=== PATIENT | female | born 1960 | race Caucasian/White ===

== ENCOUNTER 2016-06-16 22:30 | Inpatient (IN) | payer MEDICARE, MEDICAID ==
[~2016-06-16] VITALS: Ht 163.8 cm; Wt 86.6 kg
[2016-06-16] MEDS ORDERED: ASPIRIN 81MG TABLET PO ONE (23:30)
[2016-06-16 23:44] LABS: BASOPHILS % 0.5 % (0.0-2.0); HEMATOCRIT. 35.2 % (36.0-48.0); HEMOGLOBIN. 11.9 g/dL (12.0-16.0); LYMPHOCYTES % 11.9 % (20.0-50.0); MEAN CORPUSCULAR VOLUME 94.1 fL (81.0-99.0); MEAN PLATELET VOLUME 7.8 fl (7.4-10.4); MONOCYTES % 6.4 % (2.0-8.0); NEUTROPHILS % 74.2 % (40.0-76.0); PLATELET 184 x1000/uL (130-400); RED BLOOD CELL COUNT 3.73 mill/uL (4.2-5.4); RED CELL DISTRIBUTION WIDTH 15.1 % (11.6-14.6); WHITE BLOOD COUNT 7.1 x1000/uL (4.5-11.0)
[2016-06-16 23:49] LABS: PROTHROMBIN TIME 10.9 sec
[2016-06-16 23:57] LABS: ALANINE AMINOTRANSFERASE 25 IU/L (13-61); ALBUMIN 3.4 g/dL (3.4-5.0); ANION GAP 18; CALCIUM 9.9 mg/dL (8.5-10.1); CARBON DIOXIDE 31 mEq/L (21-32); CHLORIDE 91 mEq/L (98-107); INDEX HEMOLYSI 1 (1-3); INDEX ICTERIC 1 (1-4); INDEX LIPEMIC 1 (1-3); NT PRO B-TYPE NATRIURETIC PEP 15171 pg/mL (5-125); TROPONIN I 0.15 ng/mL (0.00-0.04); UREA NITROGEN BLOOD 44 mg/dL (7-21); eGFR 5 mL/min (>60)
[2016-06-17] MEDS: NITROGLYCERIN 0.4MG TABLET SL SL PRN ×3 (00:24→02:16)
[2016-06-17] MEDS ORDERED: ACETAMINOPHEN WITH CODEINE 300/30MG TABLET PO ONE (04:15)
[2016-06-17 09:48] VITALS: BP 122/60
[2016-06-17] MEDS ORDERED: CINA30 PO (10:48)
[2016-06-17] MEDS ORDERED: AMLO10TA4 PO (10:48)
[2016-06-17] MEDS ORDERED: ONDA4TAB5 PO (10:48)
[2016-06-17] MEDS ORDERED: TRAZ-129 PO (10:48)
[2016-06-17] MEDS ORDERED: ATOR20TA65 PO (10:48)
[2016-06-17] MEDS ORDERED: OXYC15TA82 PO (10:48)
[2016-06-17] MEDS ORDERED: PHOSLO PO (10:48)
[2016-06-17] MEDS ORDERED: LEVEMIR SUBCUT (10:48)
[2016-06-17] MEDS ORDERED: ASPI81TA2 PO (10:48)
[2016-06-17] MEDS ORDERED: OXYCODONE HCL 5MG TABLET PO PRN (11:45)
[2016-06-17] MEDS ORDERED: NITROGLYCERIN 0.4MG TABLET SL SL PRN (11:45)
[2016-06-17] MEDS ORDERED: FOLIC ACID/VITAMIN B COMP W-C TABLET PO SCH (11:45)
[2016-06-17 12:00] VITALS: BP 127/62
[2016-06-17] MEDS ORDERED: DEXTROSE 50% WATER 50ML SYRINGE IV PRN (12:00)
[2016-06-17] MEDS: FOLIC ACID/VITAMIN B COMP W-C TABLET PO SCH (12:34)
[2016-06-17] MEDS: ASPIRIN 81MG TABLET PO SCH (12:34)
[2016-06-17] MEDS: HYDROMORPHONE HCL/PF 2MG/ML CPJ IV PRN ×2 (12:34→18:36)
[2016-06-17] MEDS: BLOOD SUGAR DIAGNOSTIC STRIP TEST SCH ×3 (12:34→21:39)
[2016-06-17] MEDS: CALCIUM ACETATE 667MG CAPSULE PO SCH ×2 (13:03→18:36)
[2016-06-17] MEDS: INSULIN LISPRO 100 UNITS/ML SUBCUT SCH ×3 (13:04→21:00)
[2016-06-17] MEDS: NITROGLYCERIN OINT 1GM/INCH UDPKT TD SCH ×2 (13:34→21:40)
[2016-06-17 16:00] VITALS: BP 125/72
[2016-06-17] MEDS: DOCUSATE SODIUM 100MG CAPSULE PO SCH (17:00)
[2016-06-17] MEDS: CINACALCET HCL 90MG TABLET PO SCH (18:36)
[2016-06-17] MEDS: ONDANSETRON HCL 4MG/2ML VIAL IV PRN (19:38)
[2016-06-17 20:00] VITALS: BP 112/69
[2016-06-17 20:59] LABS: TROPONIN I 0.14 ng/mL (0.00-0.04)
[2016-06-17] MEDS ORDERED: TRAZODONE HCL 50MG TABLET PO PRN (21:00)
[2016-06-17] MEDS: ATORVASTATIN CALCIUM 20MG TABLET PO SCH (21:10)
[2016-06-17] MEDS: FAMOTIDINE 20MG TABLET PO SCH (21:10)
[2016-06-17] MEDS: INSULIN DETEMIR UD 100 UNITS/ML SYR SUBCUT SCH (21:40)
[2016-06-18] VITALS (7 sets, daily range): BP systolic 91–130; BP diastolic 51–70
[2016-06-18] MEDS: HYDROMORPHONE HCL/PF 2MG/ML CPJ IV PRN ×4 (00:57→21:22)
[2016-06-18 05:45] LABS: BASOPHILS % 0.5 % (0.0-2.0); EOSINOPHILS % 8.1 % (0.0-5.0); HEMATOCRIT. 35.3 % (36.0-48.0); HEMOGLOBIN. 11.9 g/dL (12.0-16.0); LYMPHOCYTES % 17.4 % (20.0-50.0); MEAN CORPUSCULAR HEMOGLOBIN 32.2 pg (28.0-32.0); MEAN CORPUSCULAR HGB CONC 33.6 g/dL (31.0-37.0); MEAN CORPUSCULAR VOLUME 95.7 fL (81.0-99.0); MEAN PLATELET VOLUME 8.2 fl (7.4-10.4); MONOCYTES % 7.1 % (2.0-8.0); NEUTROPHILS % 66.9 % (40.0-76.0); PLATELET 172 x1000/uL (130-400); RED BLOOD CELL COUNT 3.69 mill/uL (4.2-5.4); RED CELL DISTRIBUTION WIDTH 15.2 % (11.6-14.6); WHITE BLOOD COUNT 7.5 x1000/uL (4.5-11.0)
[2016-06-18] MEDS: NITROGLYCERIN OINT 1GM/INCH UDPKT TD SCH ×3 (06:00→21:25)
[2016-06-18] MEDS: BLOOD SUGAR DIAGNOSTIC STRIP TEST SCH ×4 (06:56→21:25)
[2016-06-18 07:16] LABS: CALCIUM 9.2 mg/dL (8.5-10.1); TROPONIN I 0.14 ng/mL (0.00-0.04)
[2016-06-18] MEDS: INSULIN LISPRO 100 UNITS/ML SUBCUT SCH ×4 (08:10→21:00)
[2016-06-18] MEDS: CALCIUM ACETATE 667MG CAPSULE PO SCH ×3 (08:49→18:56)
[2016-06-18] MEDS ORDERED: LIDOCAINE HCL 1% 20ML VIAL (Pyxis) INJ INFIL NR (09:15)
[2016-06-18] MEDS ORDERED: DIPHENHYDRAMINE 50MG/ML VIAL IV NR (09:15)
[2016-06-18] MEDS: ONDANSETRON HCL 4MG/2ML VIAL IV PRN (09:20)
[2016-06-18] MEDS ORDERED: MIDODRINE HCL 5MG TABLET PO PRN (13:15)
[2016-06-18] MEDS ORDERED: REGADENOSON 0.4 MG/5 ML IV ONE (13:15)
[2016-06-18] MEDS: FOLIC ACID/VITAMIN B COMP W-C TABLET PO SCH (14:49)
[2016-06-18] MEDS: DOCUSATE SODIUM 100MG CAPSULE PO SCH ×2 (14:49→18:56)
[2016-06-18] MEDS: ASPIRIN 81MG TABLET PO SCH (14:49)
[2016-06-18] MEDS: CINACALCET HCL 90MG TABLET PO SCH (18:56)
[2016-06-18] MEDS: ATORVASTATIN CALCIUM 20MG TABLET PO SCH (21:21)
[2016-06-18] MEDS: FAMOTIDINE 20MG TABLET PO SCH (21:21)
[2016-06-18] MEDS: INSULIN DETEMIR UD 100 UNITS/ML SYR SUBCUT SCH (22:09)
[2016-06-19] VITALS: BP 137/69
[2016-06-19 04:00] VITALS: BP 121/68
[2016-06-19] MEDS: NITROGLYCERIN OINT 1GM/INCH UDPKT TD SCH ×2 (05:57→16:21)
[2016-06-19] MEDS: BLOOD SUGAR DIAGNOSTIC STRIP TEST SCH ×3 (05:58→17:40)
[2016-06-19 06:47] LABS: BASOPHILS % 0.6 % (0.0-2.0); EOSINOPHILS % 8.1 % (0.0-5.0); HEMATOCRIT. 33.2 % (36.0-48.0); HEMOGLOBIN. 11.3 g/dL (12.0-16.0); MEAN CORPUSCULAR HEMOGLOBIN 32.1 pg (28.0-32.0); MEAN CORPUSCULAR HGB CONC 34.2 g/dL (31.0-37.0); MEAN CORPUSCULAR VOLUME 93.8 fL (81.0-99.0); MEAN PLATELET VOLUME 8.2 fl (7.4-10.4); MONOCYTES % 8.2 % (2.0-8.0); NEUTROPHILS % 68.1 % (40.0-76.0); PLATELET 165 x1000/uL (130-400); RED BLOOD CELL COUNT 3.54 mill/uL (4.2-5.4); RED CELL DISTRIBUTION WIDTH 14.8 % (11.6-14.6); WHITE BLOOD COUNT 6.6 x1000/uL (4.5-11.0)
[2016-06-19 07:15] LABS: ALANINE AMINOTRANSFERASE 15 IU/L (13-61); ANION GAP 16; CALCIUM 8.7 mg/dL (8.5-10.1); CARBON DIOXIDE 32 mEq/L (21-32); CHLORIDE 94 mEq/L (98-107); INDEX HEMOLYSI 1 (1-3); INDEX ICTERIC 1 (1-4); INDEX LIPEMIC 1 (1-3); MAGNESIUM 2.3 mg/dL (1.8-2.4); NT PRO B-TYPE NATRIURETIC PEP 12545 pg/mL (5-125); UREA NITROGEN BLOOD 45 mg/dL (7-21); eGFR 5 mL/min (>60)
[2016-06-19] MEDS: INSULIN LISPRO 100 UNITS/ML SUBCUT SCH ×3 (07:53→18:10)
[2016-06-19 08:00] VITALS: BP 163/82
[2016-06-19] MEDS: HYDROMORPHONE HCL/PF 2MG/ML CPJ IV PRN ×2 (08:12→16:21)
[2016-06-19] MEDS ORDERED: REGADENOSON 0.4 MG/5 ML IV ONE (08:48)
[2016-06-19] MEDS ORDERED: CLONIDINE 0.1MG TABLET PO PRN (10:15)
[2016-06-19] MEDS ORDERED: ACETAMINOPHEN 650MG/20.3ML UDC PO PRN (10:30)
[2016-06-19] MEDS: FOLIC ACID/VITAMIN B COMP W-C TABLET PO SCH (10:49)
[2016-06-19] MEDS: DOCUSATE SODIUM 100MG CAPSULE PO SCH ×2 (10:49→17:00)
[2016-06-19] MEDS: ASPIRIN 81MG TABLET PO SCH (10:49)
[2016-06-19] MEDS: CALCIUM ACETATE 667MG CAPSULE PO SCH ×3 (10:49→18:10)
[2016-06-19] MEDS: ONDANSETRON HCL 4MG/2ML VIAL IV PRN (10:56)
[2016-06-19 12:00] VITALS: BP 106/57
[2016-06-19 16:00] VITALS: BP 136/70
[2016-06-19 18:59] VITALS: BP 136/70
== END 2016-06-19 19:50 | disposition home or self-care (01) | DRG 205 ==
LOC: ER 22:31 → 7WST 06-17 04:08
PROVIDERS: ADMIT Internal Medicine; ATTEND Internal Medicine
PROC: 5A1D00Z (ICD-10-PCS; principal; 2016-06-18)
DX: M94.0 Chondrocostal junction syndrome [Tietze] (principal); N18.6 End stage renal disease; I69.351 Hemiplegia and hemiparesis following cerebral infarction affecting right dominant side; I42.9 Cardiomyopathy, unspecified; I12.0 Hypertensive chronic kidney disease with stage 5 chronic kidney disease or end stage renal disease; I95.9 Hypotension, unspecified; M81.0 Age-related osteoporosis without current pathological fracture; E11.22 Type 2 diabetes mellitus with diabetic chronic kidney disease; E78.5 Hyperlipidemia, unspecified; G89.29 Other chronic pain; D64.9 Anemia, unspecified; Z85.038 Personal history of other malignant neoplasm of large intestine; Z90.49 Acquired absence of other specified parts of digestive tract; Z99.2 Dependence on renal dialysis; Z93.3 Colostomy status; Z92.3 Personal history of irradiation; Z80.0 Family history of malignant neoplasm of digestive organs; Z82.3 Family history of stroke; Z82.49 Family history of ischemic heart disease and other diseases of the circulatory system; Z83.3 Family history of diabetes mellitus; Z87.891 Personal history of nicotine dependence; Z88.1 Allergy status to other antibiotic agents; Z72.89 Other problems related to lifestyle; Z90.722 Acquired absence of ovaries, bilateral; I34.2 Nonrheumatic mitral (valve) stenosis
CPT/HCPCS: 36415; 71010; 78452; 80048; 80053; 80061; 82962; 83735; 83880; 84443; 84484; 85025; 85379; 85610; 93005; 93017; 93306; 99285; A9500; J1170; J1200; J1815; J2405; J2785; J3490; J7030

== ENCOUNTER 2016-10-26 13:50 | Emergency (ER) | payer MEDICARE, MEDICAID ==
[~2016-10-26] VITALS: Ht 165.1 cm; Wt 85.0 kg
[~2016-10-26 13:50] MED LIST: AMLO10TA4 PO; ASPI-1160 PO; ATOR20TA65 PO; CINA30 PO; LEVEMIR SUBCUT; ONDA4TAB5 PO; OXYC15TA82 PO; PHOSLO PO; TRAZ-129 PO
[2016-10-26] MEDS ORDERED: ONDANSETRON 4MG ODT PO ONE (15:15)
[2016-10-26] MEDS ORDERED: HYDROCODONE/ACETAMINOPHEN 5/325MG TABLET PO ONE (18:00)
[2016-10-26 19:03] VITALS: BP 138/72
== END 2016-10-26 19:12 | disposition home or self-care (01) ==
LOC: ER 14:10
DX: R53.1 Weakness (principal); N18.6 End stage renal disease; Z99.2 Dependence on renal dialysis; E11.9 Type 2 diabetes mellitus without complications; Z79.82 Long term (current) use of aspirin; Z79.4 Long term (current) use of insulin; Z93.3 Colostomy status; Z88.1 Allergy status to other antibiotic agents
CPT/HCPCS: 99283; Q0162